=== PATIENT | male | born 1995 ===

== ENCOUNTER 2018-04-13 05:14 | Emergency (ER) | payer BC, OTHER ==
[~2018-04-13] VITALS: Ht 188 cm; Wt 90.0 kg
[2018-04-13] MEDS ORDERED: NALOXONE 0.4 MG/ML, 1ML ONE (05:37)
[2018-04-13] MEDS ORDERED: LIDOCAINE-MPF 1%, 5ML ONE (05:45)
[2018-04-13] MEDS ORDERED: DIPH,PERTUSS(ACELL),TET VAC/PF 0.5 ML IM-VACC ONE ×2 (05:46→06:00)
[2018-04-13] MEDS ORDERED: LIDOCAINE 1%, 10ML INFIL ONE (06:00)
[2018-04-13 09:10] VITALS: BP 113/65
[2018-04-13] MEDS ORDERED: BACITRACIN ZINC OINT 500U/GM, 0.9 GM ONE (09:10)
== END 2018-04-13 09:47 | disposition home or self-care (01) ==
LOC: ED 08:00
DX: S02.2XXA Fracture of nasal bones, initial encounter for closed fracture (principal); S01.111A Laceration without foreign body of right eyelid and periocular area, initial encounter; Y04.0XXA Assault by unarmed brawl or fight, initial encounter; Y93.89 Activity, other specified; Y92.89 Other specified places as the place of occurrence of the external cause; Y99.8 Other external cause status
CPT/HCPCS: 13132; 70450; 72125; 90471; 90715; 99285; J3490